=== PATIENT | female | born 1955 | race Caucasian/White ===

== ENCOUNTER 2021-06-27 13:29 | Outpatient (CLI) | payer BC | END 2021-06-27 13:30 | disposition home or self-care (01) | LOC: CSHULT 13:29 | PROVIDERS: ATTEND Family Medicine | DX: N63.20 Unspecified lump in the left breast, unspecified quadrant (principal); R06.00 Dyspnea, unspecified; I34.0 Nonrheumatic mitral (valve) insufficiency | CPT/HCPCS: 77066; 93306; G0279 ==

== ENCOUNTER 2025-04-05 09:46 | Outpatient (CLI) | payer BC | END 2025-04-05 09:47 | disposition home or self-care (01) | LOC: CSHSLEEP 09:46 | PROVIDERS: ATTEND Family Medicine | DX: G47.33 Obstructive sleep apnea (adult) (pediatric) (principal); R53.83 Other fatigue; R09.89 Other specified symptoms and signs involving the circulatory and respiratory systems; K21.9 Gastro-esophageal reflux disease without esophagitis; R06.83 Snoring; G47.00 Insomnia, unspecified | CPT/HCPCS: 95800 ==